=== PATIENT | male | born 1970 | race Caucasian/White ===

== ENCOUNTER 2018-01-05 22:13 | Inpatient (IN) | END 2018-01-09 17:05 | disposition home or self-care (01) | DRG 896 ==

== ENCOUNTER 2018-05-17 22:31 | Inpatient (IN) | payer OTHER ==
[~2018-05-17] VITALS: Ht 177.8 cm; Wt 77.3 kg
[~2018-05-17 22:31] MED LIST: FAMO20TA18 PO
--- NOTE | 2018-05-18 02:12 | HP ---
Date/Time of Note Date/Time of Note DATE: 05/18/18 TIME: 02:12 Assessment/Plan VTE Prophylaxis SCD applied (from Nsg): Yes Pharmacological prophylaxis: NA/contraindicated Pharm contraindication: low risk/ambulating Assessment/Plan Hospital Course This is a 48-year-old male being admitted to the MedSurg floor for: #1 alcohol withdrawal/intoxication: PRN Ativan, Librium taper, thiamine folate MVI. Banana bag x1. Seizure precautions. Social work consult for alcohol cessation. #2 transaminitis: Appear in line with previous lab values. Likely secondary to heavy alcohol use. #3 DVT GI prophylaxis: SCDs, no GI prophylaxis indicated Further treatment strategy will be implemented as per the clinical course HPI/ROS Admit Date/Time Admit Date/Time May 18, 2018 at 01:34 Hx of Present Illness Chief complaint: Symptoms of withdrawal This is a 48-year-old homeless male with a past medical history of alcohol abuse and history of withdrawal seizures who presented to [facility] with symptoms of withdrawal. His last drink was on the morning prior to presentation to [facility]. He arrived to the emergency department he was tachycardic. While patient was awaiting head CT scan patient became tremulous and tachycardic and he also desatted down to the 90s on room air. He had a chest x-ray that was done that showed possible pneumonia. He began treatment with benzodiazepines and was to be admitted. Patient reported the transfer facility that he 2 glasses of vodka daily. He also was noted to have slurred speech at the transferring hospital he did not have any focal neurological deficits. CT of the head did not show any evidence of intracranial hemorrhage or large territorial infarction or midline shift. He was given thiamine 500 mg IV x1 Librium 100 and Ativan 2 mg IV x2. On my examination of the patient at the bedside. Patient was alert and oriented x2. He did appear to be slightly tremulous. Denied any chest pain or shortness of breath. Vitals at the transfer facility showed: Temperature 36.9 heart rate 102 respirations 20 BP 120/68, during his hospital course patient's heart rate did start increasing to the highest of 127. Patient was started on clindamycin 600 mg IV every 8 hours for possible pneumonia Allergies: NKDA Medications: None ROS Const: As per HPI Eyes : No pain discharge or redness or change in visual acuity ENT: No pain, sore throat, congestion, congestion, dysphagia or discharge Respiratory: No shortness of breath, cough, sputum, wheezing, or pleuritic pain Cardiovascular: No chest pain, palpitation, PND, or edema GI : no change in appetite, abdominal pain, nausea, vomiting, diarrhea, constipation, or change in the color his stool Genitourinary: No dysuria, hematuria, flank pain , discharge or CVA tenderness Musculoskeletal: No joint pain, back pain, neck pain, restricted range of motion in neck or joints Skin: No rash, bruising or hives Neuro: No headache, dizziness, syncope, seizure, focal weakness Endocrine: No polyuria, polydipsia, temperature intolerance Psych: As per HPI PMH/Family/Social Past Medical History EtOH abuse Coded Allergies: No Known Allergy (Unverified , 01/05/18) Past Surgical History unknown, unable to obtain Past Surgical Hx: other Family History Significant Family History: no pertinent family hx Social History Alcohol Use: heavy Smoking Status: Unknown if ever smoked Drug Use: none Exam/Review of Systems Exam Exam General: Patient currently lying in bed in no acute distress, he was easily arousable and did appear slightly tremulous. HEENT: Atraumatic, normocephalic. The pupils are equal, round and reactive. Extraocular motor are intact Neck: Supple with full range of motion. No rigidity or meningismus Chest: Nontender Lungs: Clear to auscultation bilaterally no crackles rales or wheezing Heart: Normal S1-S2, Regular rhythm and rate. Abdomen: Soft , nontender, nondistended , bowel sounds are present. No guarding no rebound tenderness , No masses or organomegaly. No costovertebral temporal angle mass Extremities: Normal to inspection, no edema no cyanosis Neurologic: Normal mental status, speech normal, cranial nerves II through XII are intact, motor and sensory are intact, no focal weakness Psych: Slightly tremulous, but cooperative. MARIA DEL CARMEN DUBON May 18, 2018 02:12
[2018-05-18 02:23] VITALS: BP 137/90; PULSE 109; RESP 18
[2018-05-18] MEDS ORDERED: CHLORDIAZEPOXIDE 25 MG CAP PO SCH ×3 (02:30→09:00)
[2018-05-18] MEDS ORDERED: DOCUSATE SODIUM 100 MG CAP PO PRN (02:30)
[2018-05-18] MEDS ORDERED: BISACODYL (EC) 5 MG TAB PO PRN (02:30)
[2018-05-18] MEDS ORDERED: LORAZEPAM 2 MG INJ IV PRN ×2 (02:30→11:30)
[2018-05-18] MEDS ORDERED: NACL 0.9% 3 ML SYG IV SCH (02:30)
[2018-05-18] MEDS ORDERED: ONDANSETRON 4 MG INJ IV PRN (02:30)
[2018-05-18 02:47] VITALS: Ht 177.8 cm; Wt 77.3 kg
[2018-05-18] MEDS: MULTIVITAMINS 10 ML, THIAMINE 100 MG, FOLIC ACID 1 MG in SOD CHLORIDE 0.9% 1,000 ML IVPB SCH ×2 (03:58→08:16)
[2018-05-18] MEDS: ACETAMINOPHEN 325 MG TAB PO PRN ×2 (04:26→12:05)
[2018-05-18] MEDS: CHLORDIAZEPOXIDE 25 MG CAP PO SCH ×3 (04:43→12:05)
[2018-05-18 07:46] VITALS: BP 124/78; PULSE 103; RESP 18
[2018-05-18] MEDS ORDERED: CLINDAMYCIN 600 MG/D5W (PMX) 50 ML IVPB SCH (08:00)
[2018-05-18] MEDS ORDERED: THIAMINE 200 MG INJ IV SCH (09:00)
[2018-05-18] MEDS ORDERED: FAMOTIDINE 20 MG TAB PO SCH (09:00)
[2018-05-18] MEDS ORDERED: THIAMINE 200 MG in SOD CHLORIDE 0.9% 100 ML IV SCH (09:00)
--- NOTE | 2018-05-18 16:48 | DS ---
Date/Time of Note Date/Time of Note DATE: 05/18/18 TIME: 16:44 Discharge Summary Admission/Discharge Info Admit Date/Time May 18, 2018 at 01:34 Discharge Date/Time May 18, 2018 at 13:35 Discharge Diagnosis Alcohol withdrawal. Patient Condition: Good Consults None Procedures None Hx of Present Illness Chief complaint: Symptoms of withdrawal This is a 48-year-old homeless male with a past medical history of alcohol abuse and history of withdrawal seizures who presented to [facility] with symptoms of withdrawal. His last drink was on the morning prior to presentation to [facility]. He arrived to the emergency department he was tachycardic. While patient was awaiting head CT scan patient became tremulous and tachycardic and he also desatted down to the 90s on room air. He had a chest x-ray that was done that showed possible pneumonia. He began treatment with benzodiazepines and was to be admitted. Patient reported the transfer facility that he 2 glasses of vodka daily. He also was noted to have slurred speech at the transferring hospital he did not have any focal neurological deficits. CT of the head did not show any evidence of intracranial hemorrhage or large territorial infarction or midline shift. He was given thiamine 500 mg IV x1 Librium 100 and Ativan 2 mg IV x2. On my examination of the patient at the bedside. Patient was alert and oriented x2. He did appear to be slightly tremulous. Denied any chest pain or shortness of breath. Vitals at the transfer facility showed: Temperature 36.9 heart rate 102 respira tions 20 BP 120/68, during his hospital course patient's heart rate did start increasing to the highest of 127. Patient was started on clindamycin 600 mg IV every 8 hours for possible pneumonia Hospital Course On my exam in this morning the patient did have mild tongue fasciculations. However he insisted on leaving, saying [facility] I explained the risk of seizure and from withdrawal. He repeated this back to me. He was otherwise alert and oriented and I determined he does have capacity to leave AMA. Additionally, I made sure he was able to ambulate unassisted up and down the hallways which he did satisfactorily. Home Meds Active Scripts Famotidine* (Famotidine*) 20 Mg Tablet, 20 MG PO DAILY, #30 TAB Prov:KAY NAIR MD 01/09/18 Primary Care Provider Not On Staff Doctor Time spent on discharge: > 30 minutes Pending Labs Laboratory Tests Test 05/18/18 03:29 White Blood Count 4.3 10^3/ul (4.8-10.8) Red Blood Count 4.14 10^6/ul (4.70-6.10) Hemoglobin 12.8 g/dl (14.0-18.0) Hematocrit 38.5 % (42.0-52.0) Mean Corpuscular Volume 93.0 fl (82.0-101.0) Mean Corpuscular Hemoglobin 30.9 pg (29.0-33.0) Mean Corpuscular Hemoglobin Concent 33.2 g/dl (32.0-37.0) Red Cell Distribution Width 16.7 % (11.5-14.5) Platelet Count 145 10^3/UL (140-415) Mean Platelet Volume 10.4 fl (7.4-10.4) Immature Granulocytes % 0.200 % (0.001-0.429) Neutrophils % 69.5 % (39.0-77.0) Lymphocytes % 16.4 % (15.0-51.0) Monocytes % 12.7 % (0.0-11.0) Eosinophils % 0.5 % (0.0-7.0) Basophils % 0.7 % (0.0-2.0) Nucleated Red Blood Cells % 0.0 /100WBC (0.0-0.0) Immature Granulocytes # 0.010 10^3/ul (0.0-0.031) Neutrophils # 3.0 10^3/ul (1.6-7.5) Lymphocytes # 0.7 10^3/ul (0.8-2.9) Monocytes # 0.6 10^3/ul (0.3-0.9) Eosinophils # 0.0 10^3/ul (0.0-0.5) Basophils # 0.0 10^3/ul (0.0-0.1) Nucleated Red Blood Cells # 0.0 10^3/ul (0.0-0.0) Sodium Level 136 mmol/L (135-144) Potassium Level 3.8 mmol/L (3.5-5.1) Chloride Level 104 mmol/L (97-110) Carbon Dioxide Level 24 mmol/L (21-31) Anion Gap 8 (5-13) Blood Urea Nitrogen 4 mg/dl (7-20) Creatinine 0.45 mg/dl (0.61-1.24) Est Glomerular Filtrat Rate mL/min > 60 mL/min (>60) Glucose Level 105 mg/dl (70-220) Hemoglobin A1c 5.7 % (0-5.9) Calcium Level 8.2 mg/dl (8.4-10.2) Magnesium Level 1.9 mg/dl (1.7-2.5) Total Bilirubin 0.9 mg/dl (0.2-1.3) Direct Bilirubin 0.00 mg/dl (0.00-0.20) Indirect Bilirubin 0.9 mg/dl (0-1.1) Aspartate Amino Transf (AST/SGOT) 85 IU/L (15-46) Alanine Aminotransferase (ALT/SGPT) 16 IU/L (13-69) Alkaline Phosphatase 196 IU/L (42-121) Total Protein 7.8 g/dl (6.1-8.1) Albumin 3.5 g/dl (3.3-4.9) Globulin 4.30 g/dl (1.3-3.2) Albumin/Globulin Ratio 0.81 Triglycerides Level 115 mg/dl (0-149) Cholesterol Level 247 mg/dl (100-200) LDL Cholesterol, Calculated 125 mg/dl HDL Cholesterol 99 mg/dl (27-67) Cholesterol/HDL Ratio 2.4 RATIO Vitamin B12 Level 702 pg/ml (239-931) Folate 12.9 ng/ml (2.8-20.0) Thyroid Stimulating Hormone (TSH) 0.986 MIU/L (0.465-4.680) Ethyl Alcohol Level < 10.0 mg/dl (0-0) RAI BEVERLY MD May 18, 2018 16:48
[2018-05-19] MEDS ORDERED: CHLORDIAZEPOXIDE 25 MG CAP PO SCH ×2 (02:30→09:00)
[2018-05-19] MEDS ORDERED: THIAMINE 200 MG in SOD CHLORIDE 0.9% 100 ML IV SCH (09:00)
[2018-05-20] MEDS ORDERED: CHLORDIAZEPOXIDE 25 MG CAP PO SCH ×2 (02:30→09:00)
[2018-05-21] MEDS ORDERED: CHLORDIAZEPOXIDE 25 MG CAP PO SCH (02:30)
== END 2018-05-18 13:35 | disposition left against medical advice (07) | DRG 894 ==
LOC: 2NE 05-18 01:34
PROVIDERS: ADMIT Internal Medicine; ATTEND Internal Medicine
DX: F10.239 Alcohol dependence with withdrawal, unspecified (principal); F10.229 Alcohol dependence with intoxication, unspecified; Y90.0 Blood alcohol level of less than 20 mg/100 ml
CPT/HCPCS: 80053; 80061; 80307; 82607; 82746; 83036; 83735; 84443; 85025; 87081; J2060; J2405; J3411; J7030